=== PATIENT | female | born 2000 | race Two or more races ===

== ENCOUNTER → 2020-05-17 | Outpatient (CLI) | payer MEDICAID, OTHER | END | disposition home or self-care (01) | LOC: UNDOADMOB 11:25 → OB 11:25 → LDRP 11:25 → UNDODISOB 05-18 00:22 → EDSTATUS 05-23 09:48 | PROVIDERS: ATTEND Obstetrics & Gynecology | DX: O32.1XX0 Maternal care for breech presentation, not applicable or unspecified (principal); Z3A.26 26 weeks gestation of pregnancy | CPT/HCPCS: 76805; G0378 ==

== ENCOUNTER 2020-08-08 14:13 | Inpatient (IN) | payer MEDICAID ==
[~2020-08-08] VITALS: Ht 165.1 cm; Wt 71.0 kg
[2020-08-08] MEDS ORDERED: PHISODERM TOP SOLN 240ML BTL TOP PRN (16:30)
[2020-08-08] MEDS ORDERED: DERMOPLAST 60ML BOTTLE TOP PRN (16:30)
[2020-08-08] MEDS ORDERED: PENICILLIN G POT 5MIL/D5 50ML 50 ML IV ONE (16:30)
[2020-08-08] MEDS ORDERED: BUTORPHANOL TARTRATE 2 MG/1 ML VIAL IV PRN ×2 (16:30)
[2020-08-08] MEDS ORDERED: LIDOCAINE 2%HCL (LOCAL ANESTH.) INJ 20ML MDV IJ PRN (16:30)
[2020-08-08] MEDS ORDERED: PROMETHAZINE HCL 25 MG/ML 1ML IV PRN (16:30)
[2020-08-08] MEDS ORDERED: WITCH HAZEL-GLYCERIN PAD TOP PRN (16:30)
[2020-08-08] MEDS ORDERED: LACTATED RINGER'S 1,000 ML IV SCH (16:30)
[2020-08-08] MEDS ORDERED: LACT. RINGERS/OXYTOCIN 20UNITS 500 ML IV ONE ×2 (16:45→17:15)
[2020-08-08 17:04] LABS: Basophils # (auto) 0 10 ^3/uL (0-0.2); Basophils % (auto) 0.2 % (0.0-2.0); Eosinophils # (auto) 0 10 ^3/uL (0-0.8); Eosinophils % (auto) 0.2 % (0.0-7.0); Hematocrit 32.4 % (36.0-46.0); Hemoglobin 11.2 g/dL (12.2-16.2); Lymphocytes # (auto) 2.3 10 ^3/uL (0.4-5.4); Lymphocytes % (auto) 33.5 % (10.0-50.0); Mean Corpuscular Hgb Conc. 34.6 g/dL (32.0-36.0); Mean Corpuscular Volume 89.6 fL (80.0-100.0); Monocytes # (auto) 0.5 10 ^3/uL (0-1.3); Monocytes % (auto) 7.6 % (0.0-12.0); Neutrophils % (auto) 58.5 % (37.0-80.0); Nucleated Red Blood Cells % 0.1 %; Red Blood Cells 3.62 10^6/uL (4.0-5.20); Red Cell Distribution Width 13.3 % (11.8-14.3); White Blood Cell 6.9 10^3/uL (4.4-10.8)
[2020-08-08 17:18] LABS: Albumin 2.5 g/dL (3.4-5.0); BUN/Creatinine Ratio 11.7; Calcium 8.2 mg/dL (8.5-10.1); Potassium 3.7 mmol/L (3.5-5.1)
[2020-08-08 17:19] LABS: INR 0.94 (0.9-1.15)
[2020-08-08 17:21] LABS: Bilirubin, Total 0.3 mg/dL (0.2-1.0); Total Protein 6.1 g/dL (6.4-8.2)
[2020-08-08 19:47] LABS: Urine Bacteria NONE SEEN /hpf (None Seen); Urine Blood TRACE /uL (Negative); Urine Specific Gravity 1.021 (1.001-1.035); Urine WBC 8 /hpf (0 - 5)
[2020-08-08 20:08] LABS: Amphetamine Screen, Urine NEGATIVE (NEGATIVE); Barbiturate Scree,Urine NEGATIVE (NEGATIVE); Benzodiazephine Screen, Urine NEGATIVE (NEGATIVE); Cannabinoid Screen, Urine NEGATIVE (NEGATIVE); Cocaine Screen, Urine NEGATIVE (NEGATIVE); Opiate Scree,Urine NEGATIVE (NEGATIVE); Phencyclidine Screen, Urine NEGATIVE (NEGATIVE)
[2020-08-08] MEDS: PENICILLIN G POTASSIUM 2,500,000 UNITS in D5W 5% 50 ML IV SCH (20:20)
[2020-08-08] MEDS ORDERED: TERBUTALINE SULFATE 1 MG/ML 1ML VIAL SC ONE (21:15)
[2020-08-08] MEDS ORDERED: LACT. RINGERS/OXYTOCIN 20UNITS 1,000 ML IV SCH (21:15)
[2020-08-08] MEDS ORDERED: LIDOCAINE HCL 2 %PF INJ 10ML AMP IJ ONE (22:15)
[2020-08-08] MEDS ORDERED: LACTATED RINGER'S 1,000 ML IV ONE (22:15)
[2020-08-08] MEDS ORDERED: ROPIVACAINE HCL 200 ML EPI SCH (22:15)
[2020-08-08] MEDS ORDERED: ePHEDrine SULFATE 50 MG/ML AMP IV ONE ×2 (22:15→23:30)
[2020-08-08] MEDS ORDERED: fentaNYL CITRATE 100 MCG/2 ML VL IV ONE ×2 (22:15→23:30)
[2020-08-08] MEDS ORDERED: LACTATED RINGER'S 500 ML IV ONE (23:30)
[2020-08-08] MEDS ORDERED: SODIUM CHLORIDE 0.9% 500 ML IV PRN (23:30)
[2020-08-08] MEDS ORDERED: fentaNYL 400mCg/200ml W ROPIVA 200 ML EPI SCH (23:30)
[2020-08-08] MEDS ORDERED: NALOXONE HCL 0.4 MG/ML VIAL IV ONE (23:30)
[2020-08-09] LABS: Basophils # (auto) 0.1 10 ^3/uL (0-0.2); Basophils % (auto) 0.7 % (0.0-2.0); Eosinophils # (auto) 0 10 ^3/uL (0-0.8); Eosinophils % (auto) 0.4 % (0.0-7.0); Hematocrit 34.2 % (36.0-46.0); Hemoglobin 11.7 g/dL (12.2-16.2); Lymphocytes # (auto) 1.6 10 ^3/uL (0.4-5.4); Lymphocytes % (auto) 16.5 % (10.0-50.0); Mean Corpuscular Hemoglobin 30.8 pg (28.0-32.0); Mean Corpuscular Hgb Conc. 34.2 g/dL (32.0-36.0); Monocytes # (auto) 0.4 10 ^3/uL (0-1.3); Monocytes % (auto) 4.1 % (0.0-12.0); Neutrophils # (auto) 7.6 10 ^3/uL (1.6-8.6); Neutrophils % (auto) 78.3 % (37.0-80.0); Nucleated Red Blood Cells % 0.1 %; Red Cell Distribution Width 13.6 % (11.8-14.3); White Blood Cell 9.7 10^3/uL (4.4-10.8)
[2020-08-09] MEDS ORDERED: ROPIVACAINE HCL 200 ML EPI SCH (00:15)
[2020-08-09] MEDS: PENICILLIN G POTASSIUM 2,500,000 UNITS in D5W 5% 50 ML IV SCH (00:40)
[2020-08-09] MEDS ORDERED: ACETAMINOPHEN 325 MG TAB PO PRN (05:00)
[2020-08-09] MEDS: IBUPROFEN 600 MG TAB PO PRN (05:56)
[2020-08-09 06:00] VITALS: BP 130/79
[2020-08-09 06:30] VITALS: BP 130/79
[2020-08-09 11:30] VITALS: BP 99/58
[2020-08-09 15:30] VITALS: BP 117/67
[2020-08-09] MEDS ORDERED: BISACODYL 10 MG RECT SUPP PR PRN (17:00)
[2020-08-09 18:50] VITALS: BP 124/69
[2020-08-09 23:26] VITALS: BP 126/69
[2020-08-10 03:22] VITALS: BP 121/72
[2020-08-10 06:06] LABS: RPR Non Reactive (Non Reactive)
[2020-08-10 06:49] VITALS: BP 123/74
[2020-08-10 11:51] VITALS: BP 122/78
[2020-08-10 15:50] VITALS: BP 142/87
[2020-08-10] MEDS: IBUPROFEN 600 MG TAB PO PRN (16:00)
[2020-08-10 19:00] VITALS: BP 132/78
[2020-08-10] MEDS ORDERED: PREN-96 PO (19:49)
[2020-08-10 20:21] VITALS: BP 132/78
== END 2020-08-10 20:21 | disposition home or self-care (01) | DRG 560 ==
LOC: LDRP 14:13 → OBSVTOIN 16:00 → LDRP 17:36
PROVIDERS: ADMIT Obstetrics & Gynecology; ATTEND Obstetrics & Gynecology
PROC: 10E0XZZ Delivery of Products of Conception, External Approach (ICD-10-PCS; principal; 2020-08-09)
PROC: 3E0R3BZ Introduction of Anesthetic Agent into Spinal Canal, Percutaneous Approach (ICD-10-PCS; 2020-08-09)
PROC: 00HU33Z Insertion of Infusion Device into Spinal Canal, Percutaneous Approach (ICD-10-PCS; 2020-08-09)
DX: O99.824 Streptococcus B carrier state complicating childbirth (principal); Z20.822 Contact with and (suspected) exposure to COVID-19; O62.2 Other uterine inertia; Z37.0 Single live birth; Z3A.39 39 weeks gestation of pregnancy
CPT/HCPCS: 36415; 59025; 59409; 62282; 80053; 80307; 81001; 81002; 84112; 85025; 85610; 85730; 86592; 86850; 86900; 86901; 87426; 94762; 96360; 96361; 96365; 96366; 96374; 96375; G0378; J2540; J2590; J7060